=== PATIENT | male | born 1985 | race African-American/Black ===

== ENCOUNTER 2019-01-26 19:20 | Emergency (ER) | payer OTHER ==
[~2019-01-26] VITALS: Ht 185.4 cm; Wt 88.0 kg
--- NOTE | 2019-01-26 19:47 | NUR ---
BIBS FOR C/O R CALF PAIN, TENDERNESS, TIGHTNESS SINCE MAY. HX. R ACL SURGERY OCTOBER 2016. CONCERN ABOUT POSSIBLE BLOOD CLOT.
--- NOTE | 2019-01-26 20:25 | NUR ---
US TECH AT THE BED SIDE
--- NOTE | 2019-01-26 21:27 | NUR ---
Patient discharged to home in stable condition. Written and verbal after care instructions given. Patient verbalizes understanding of instruction.
[2019-01-26 21:29] VITALS: BP 117/68
== END 2019-01-26 21:30 | disposition home or self-care (01) ==
LOC: ER 19:24
DX: M79.661 Pain in right lower leg (principal); F32.9 Major depressive disorder, single episode, unspecified; F41.9 Anxiety disorder, unspecified; F17.200 Nicotine dependence, unspecified, uncomplicated; Z98.890 Other specified postprocedural states
CPT/HCPCS: 93971-TC